=== PATIENT | female | born 1960 | race Asian ===

== ENCOUNTER 2023-02-02 16:17 | Inpatient (IN) | payer OTHER, SELFPAY ==
[2023-02-02] VITALS (7 sets, daily range): BP systolic 118–165; BP diastolic 57–113; PULSE 89–98; RESP 16–24; TEMP 36.7–37; O2SAT 89–98; BMI 25.7
--- NOTE | ~2023-02-02 | XR_ITS ---
EXAMINATION: XR CHEST CLINICAL INFORMATION: Shortness of breath COMPARISON: None available. TECHNIQUE: Frontal portable view of the chest was obtained. 4:44 PM FINDINGS: No significant abnormality is noted involving the heart, lungs, mediastinum, bony thorax or soft tissues. XR/XR chest 1V IMPRESSION: Unremarkable examination.
--- NOTE | 2023-02-02 16:28 | ED.SOB ---
HPI - SOB/Dyspnea General Chief Complaint: Asthma Stated Complaint: sob asthmatic, per ems Time Seen by Provider: 02/02/23 16:27 Source: patient Mode of arrival: EMS Limitations: no limitations History of Present Illness HPI Narrative: Patient with history of asthma usually stable use inhaler every day no recent admission to the hospital been having increased shortness of breath for last 5 hours patient been having his use of inhaler for last 5 days due to [place] smoke problem patient use at least 3 nebulizing treatment prior to arrival without much relief when EMS reached patient is saturating 89-91% at room air was given 125 mg Solu-Medrol and DuoNeb treatment on arrival patient for saturating 89% at room air patient feels chest tight no leg edema no palpitation no fever no chills Related Data Home Medications Medication Instructions Recorded Confirmed albuterol sulfate 2.5 mg/3 mL 2.5 mg inhalation Q4H PRN wheezing 02/02/23 02/02/23 (0.083 %) solution for nebulization albuterol sulfate 90 mcg/actuation 2 puff inhalation Q6H PRN wheezing 02/02/23 02/02/23 aerosol inhaler ascorbic acid (vitamin C) 500 mg 500 mg PO DAILY 02/02/23 02/02/23 tablet cholecalciferol (vitamin D3) 25 25 mcg PO DAILY 02/02/23 02/02/23 mcg (1,000 unit) tablet fluticasone 500 mcg-salmeterol 50 1 inh inhalation BID 02/02/23 02/02/23 mcg/dose blistr powdr for inhalation (Wixela Inhub) gabapentin 300 mg capsule 300 mg PO DAILY@1200 02/02/23 02/02/23 levothyroxine 50 mcg tablet 75 mcg PO DAILY@0600 02/02/23 02/02/23 (Synthroid) lisinopril 2.5 mg tablet 2.5 mg PO DAILY 02/02/23 02/02/23 meclizine 12.5 mg tablet 12.5 mg PO TID PRN Dizziness 02/02/23 02/02/23 montelukast 10 mg tablet 10 mg PO BEDTIME 02/02/23 02/02/23 sertraline 25 mg tablet 25 mg PO DAILY 02/02/23 02/02/23 Allergies Allergy/AdvReac Type Severity Reaction Status Date / Time No Known Allergies Allergy Verified 02/02/23 16:27 Review of Systems Review of Systems: Yes all other systems are reviewed and are negative [facility] Past Medical History Medical History Asthma Hypertension Hypothyroid Shoulder pain Social History Social History Household Members: Family Housing: House Do you presently have visiting nurse or 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 Oriented X3. Moderate respiratory distress Eyes: PERRLA, No Nystagmus ENT: Pharynx normal. Oral Mucosa moist Neck: Normal inspection. Neck supple. CVS: Normal heart rate and rhythm. Pulses normal. Respiratory: Moderate respiratory distress. Speaking short sentences Equal air entry bilateral, bilateral wheezing no rales Abdomen: Soft and nontender. Bowel sounds are present, no mass palpable, no CVA tenderness Skin: Skin warm and dry. Normal skin color. Normal skin turgor. Extremities: No lower extremity edema. No calf tenderness Neuro: Oriented X 3. No motor deficit. Medications Administered Generic Name Dose Route Start Last Admin Trade Name Freq PRN Reason Stop Dose Admin Methylprednisolone Sodium Succinate 40 mg 02/02/23 21:30 02/02/23 21:52 Methylprednisolone Sod Succ 40 Mg/Ml Vial IVPUSH 40 mg Q12H MAURI Administration Sodium Chloride 3 ml 02/03/23 00:00 02/02/23 23:29 0.9 % Sodium Chloride Flush 3 Ml Syringe IVFLUSH 3 ml QSHIFT MAURI Administration Discontinued Medications Generic Name Dose Route Start Last Admin Trade Name Freq PRN Reason Stop Dose Admin Albuterol Sulfate 10 mg 02/02/23 19:27 02/02/23 19:35 Albuterol Sulfate (0.083%) 2.5 Mg/3 Ml Vial.Neb INHALE 02/02/23 19:28 10 mg ONCE ONE Administration Albuterol Sulfate 5 mg/ 0 mg 02/02/23 16:37 02/02/23 17:06 Albuterol/Ipratropium 3 ml INHALE 02/02/23 16:38 2.5 each ONCE ONE Administration Sodium Chloride 1,000 mls @ 999 mls/hr 02/02/23 16:37 02/02/23 18:02 Ns IV 02/02/23 17:37 Infused .Q1H1M ONE Infusion Magnesium Sulfate 2 gm in 50 mls @ 100 mls/hr 02/02/23 16:37 02/02/23 17:32 Magnesium Sulfate/H2o IV 02/02/23 17:06 Infused ONCE ONE Infusion Medical Decision Making Medical Decision Making MDM Narrative: Patient with status asthmaticus received 2 hour long treatments in the ER still very tight saturating 95% at rest drops to 91% on ambulation. Will admit patient for supportive management Differential Diagnosis Status asthmaticus/pneumonia/bronchitis CHF Consult Healthcare Provider Management of the patient was discussed with: Hospitalist Lab Data MDM Lab Attestation statement: I reviewed the patient's lab results. 02/02/23 17:43 02/02/23 17:43 Labs: Lab Results 02/02/23 02/02/23 02/02/23 Range/Units 17:43 17:43 17:43 WBC 9.6 (4.8-10.8) X10*3/uL RBC 4.13 L (4.20-5.50) X10*6/uL Hgb 13.4 (12.0-16.0) g/dl Hct 39.5 (37.0-47.0) % MCV 95.6 (80.0-98.0) fL MCH 32.4 (27.0-33.0) pg MCHC 33.9 (31.0-35.0) g/dl RDW 13.4 (11.0-16.0) % Plt Count 218 (160-400) X10*3/uL MPV 10.4 (9.4-12.3) fL Immature Gran % (Auto) 0.3 (0.0-0.4) % Neut % (Auto) 83.8 H (45-73) % Lymph % (Auto) 12.7 L (20-40) % [place] % (Auto) 2.3 (2-11) % Eos % (Auto) 0.6 (0-4) % Baso % (Auto) 0.3 (0-2) % Lymph # (Auto) 1.2 (1.2-4.9) X10*3/uL [place] # (Auto) 0.2 (0.1-1.2) X10*3/uL Eos # (Auto) 0.1 (0.0-0.4) X10*3/uL Baso # (Auto) 0.0 (0.0-0.2) X10*3/uL Abs Immat Gran (auto) 0.03 (0.00-0.03) X10*3/uL Absolute Neuts (auto) 8.0 (2.0-8.3) x10*3/uL Absolute Nucleated RBC 0.000 (0.0-0.012) X10*3/uL Nucleated RBC % (auto) 0.0 (0.0-0.2) /100WBC Sodium 143 (135-145) mmol/L Potassium 4.1 (3.3-5.1) mmol/L Chloride 106 (96-108) mmol/L Carbon Dioxide 25 (22-29) mmol/L Anion Gap 16 (12-20) BUN 9 (9-16) mg/dL Creatinine 0.72 (0.5-1.4) mg/dL Estim Creat Clear Calc 74.8 Estimated GFR > 60 Random Glucose 132 H (60-115) mg/dL Calcium 9.0 (8.4-10.2) mg/dL Total Bilirubin 0.9 (0.0-1.0) mg/dL AST 17 (5-31) U/L ALT 14 (0-31) U/L Alkaline Phosphatase 58 (39-117) U/L Total Protein 7.2 (6.5-8.0) g/dL Albumin 3.9 (3.5-5.0) g/dL COVID-19 (JOELLE) Negative (Negative) COVID-19 Clin Com See Note Critical Care Time Critical Care Time Critical Care Time: Yes Total Critical Care Time: 95 Attestation: The patient was critically ill with a high probability of imminent or life threatening deterioration. I spent greater [id number] minutes of discontinuous time evaluating the patient,delivering critical care at the bedside, discussing and evaluating pertinent data with consultants. Critical care time does not include time spent performing separately billable procedures or teaching. Total time spent performing critical care was 95 minutes. Discharge Plan Discharge Clinical Impression: Asthma with status asthmaticus Patient Disposition: Admitted As Inpatient Interventions: Admission Worksheet (ED) Last Done: 02/02/23 22:55 Discharge Date/Time: 02/02/23 23:05
--- NOTE | 2023-02-02 17:12 | PC.NURSE ---
pt alert and orientedx3, nsr on the traffic monitor specialist, elevated bp and tachypneic - otherwise vss, respiratory therapist bedside providing pt with ordered treatment, IVF and magnesium hung per provider order, inspiratory and expiratory wheezing noted upon auscultation prior to magnesium treatment, pt states 0/10 pain but feels like she has a sore throat d/t nagging cough, call astorga placed withihn reach, will continue to monitor.
--- NOTE | 2023-02-02 18:00 | PC.NURSE ---
magnesium infused and discontinued per provider order, pt demonstrating clear lungs bilaterally with a decrease in wheezing post respiratory treatment and magnesium administration, pt verbalizes decrease in chest tightness during inspiration and expiration, pt resting comfortably watching television sitting upright showing no manifestations of an increased WOB, call astorga placed within reach.
--- NOTE | 2023-02-02 19:56 | PC.NURSE ---
Pt aox4 receiving neb treatment at the bedside. Reports no pain at this time. NSR on monitor with hr 92. O2 sat 95% on 3L NC. RR 14. VSS No apparent distress noted. Will continue to monitor.
--- NOTE | 2023-02-02 21:38 | P.HPHOSP_ITS ---
History of Present Illness Date of Service: 02/02/23 Attending physician on admission: Farhan Bajwa Chief Complaint: Wheezing, SOB Pt is a 62-year-old female with a PMH significant for?hypothyroidism, HTN, moderate persistent asthma, and mood disorder who presents to the ED with?increased wheezing and shortness of breath since this morning. Patient states that at 03:00 she woke having difficulty breathing. Patient used her inhalers went back to sleep, but when she awoke this morning she continued to have severe wheezing and shortness of breath which worsened by 10:00 despite rep eated use of her inhalers. Patient called EMS and arrived at the hospital tachypneic and satting at 89% on RA. Patient is not on supplemental home O2, and she reports her last admission to a hospital for an asthma exacerbation was around 15 years ago. Patient denies chest pain/pressure, palpitations. No fever, chills, nausea, vomiting, abdominal pain. In the ED patient was hypoxic at 89% O2 on RA, tachypneic up to 24, and hypertensive up to 165/66. Labs were grossly unremarkable. CXR showed no acute cardiopulmonary process. Pt was treated with IVF, DuoNebs, Mag sulfate, yet despite treatment patient continued to have shortness of breath and wheezing. She will be admitted to the hospital under observation for treatment and further evaluation of acute hypoxic respiratory failure in the setting of asthma exacerbation. Review of Systems Review of Systems: Shortness of breath, dyspnea Wheezing Denies chest pain/pressure, palpitations Nausea, vomiting, fever, chills Denies abdominal pain Yes all other systems are reviewed and are negative [facility] Medical History Asthma Hypertension Hypothyroid Shoulder pain Social History Alcohol intake: never Patient Tobacco Use Status: Never used Tobacco Meds Allergies Allergy/AdvReac Type Severity Reaction Status Date / Time No Known Allergies Allergy Verified 02/02/23 16:27 Active Medications: Current Medications Albuterol/Ipratropium (Albuterol/Iprat 2.5/0.5mg 3 Ml Ampul.Neb) 3 ml INHALE RQ4H WHILE AWAKE MAURI Albuterol/Ipratropium (Albuterol/Iprat 2.5/0.5mg 3 Ml Ampul.Neb) 3 ml INHALE Q4H PRN PRN Reason: Wheezing Methylprednisolone Sodium Succinate (Methylprednisolone Sod Succ 40 Mg/Ml Vial) 40 mg IVPUSH Q12H [facility] Pharmacy Consult (Consult Rx Perform Med Rec) 1 each MISCELLANE ONCE PRN PRN Reason: Consult order Home Medications Medication Instructions Recorded Confirmed Last Taken Type albuterol sulfate 2.5 mg/3 mL 2.5 mg inhalation Q4H PRN wheezing 02/02/23 02/02/23 02/01/23 History (0.083 %) solution for nebulization albuterol sulfate 90 mcg/actuation 2 puff inhalation Q6H PRN wheezing 02/02/23 02/02/23 02/01/23 History aerosol inhaler ascorbic acid (vitamin C) 500 mg 500 mg PO DAILY 02/02/23 02/02/23 02/01/23 History tablet cholecalciferol (vitamin D3) 25 25 mcg PO DAILY 02/02/23 02/02/23 02/01/23 History mcg (1,000 unit) tablet fluticasone 500 mcg-salmeterol 50 1 inh inhalation BID 02/02/23 02/02/23 02/01/23 History mcg/dose blistr powdr for inhalation (Wixela Inhub) gabapentin 300 mg capsule 300 mg PO DAILY@1200 02/02/23 02/02/23 02/01/23 History levothyroxine 50 mcg tablet 75 mcg PO DAILY@0600 02/02/23 02/02/23 02/01/23 History (Synthroid) lisinopril 2.5 mg tablet 2.5 mg PO DAILY 02/02/23 02/02/23 02/01/23 History meclizine 12.5 mg tablet 12.5 mg PO TID PRN Dizziness 02/02/23 02/02/23 02/01/23 History montelukast 10 mg tablet 10 mg PO BEDTIME 02/02/23 02/02/23 02/01/23 History sertraline 25 mg tablet 25 mg PO DAILY 02/02/23 02/02/23 02/01/23 History Physical Exam Vital Signs and Narrative: Vital Signs: Last Vital Signs Temp 98.6 F 02/02/23 16:27 Pulse 95 02/02/23 19:54 Resp 16 02/02/23 19:54 BP 125/69 02/02/23 19:54 Pulse Ox 93 02/02/23 19:54 O2 Del Method Nasal Cannula 02/02/23 19:54 O2 Flow Rate 3 02/02/23 19:54 BMI result Body Mass Index 25.7 Constitutional: Alert, in no acute distress. Mental Status: Oriented to person, place and time. Eyes: Pupils are equal, round, and reactive to light. Ear, Nose, and Throat: Oropharynx clear, mucous membranes moist. Ears and nose without deformities. Trachea midline. Respiratory: Diffuse expiratory wheezing bilaterally. Cardiovascular: S1, S2 regular. No murmurs, rubs, or gallops. Gastrointestinal: Abdomen soft, non-tender, non-distended. Normal bowel sounds. Neurologic: Cranial nerves II-XII are grossly intact bilaterally. No focal neurological deficits. Moves all extremities spontaneously. Skin: No rashes or lesions noted. Musculoskeletal: No cyanosis or clubbing. Extremities: No edema. Psychiatric: Normal mood and affect. Results Labs 02/02/23 17:43 02/02/23 17:43 Labs: Laboratory Results - last 24 hr 02/02/23 02/02/23 02/02/23 17:43 17:43 17:43 MCV 95.6 MCH 32.4 MCHC 33.9 RDW 13.4 Plt Count 218 MPV 10.4 Immature Gran % (Auto) 0.3 Neut % (Auto) 83.8 H Lymph % (Auto) 12.7 L [place] % (Auto) 2.3 Eos % (Auto) 0.6 Baso % (Auto) 0.3 Lymph # (Auto) 1.2 [place] # (Auto) 0.2 Eos # (Auto) 0.1 Baso # (Auto) 0.0 Abs Immat Gran (auto) 0.03 Absolute Neuts (auto) 8.0 Absolute Nucleated RBC 0.000 Nucleated RBC % (auto) 0.0 Anion Gap 16 Estim Creat Clear Calc 74.8 Estimated GFR > 60 Random Glucose 132 H Calcium 9.0 Total Bilirubin 0.9 AST 17 ALT 14 Alkaline Phosphatase 58 Total Protein 7.2 Albumin 3.9 COVID-19 (JOELLE) Negative COVID-19 Clin Com See Note Imaging Radiologist's Impressions: Impressions Chest X-Ray 02/02/23 16:53 IMPRESSION: Unremarkable examination. Assessment and Plan (1) Asthma exacerbation: Status: Acute Plan Pt is a 62-year-old female with a PMH significant for?hypothyroidism, HTN, moderate persistent asthma, and mood disorder who presents to the ED with?increased wheezing and shortness of breath since this morning. Patient states that at 03:00 she woke having difficulty breathing. Patient used her inhalers went back to sleep, but when she awoke this morning she continued to have severe wheezing and shortness of breath which worsened by 10:00 despite repeated use of her inhalers. Patient be admitted to the hospital under observation for treatment further evaluation of acute asthma exacerbation. Acute hypoxic respiratory failure in the setting of asthma exacerbation Patient with moderate persistent asthma, arrived to ED satting at 89% on RA Currently satting at 93% on 3L NC, not on home O2, diffuse wheezing on auscultation despite treatment in the ED Treat with DuoNebs, Solu-Medrol Titrate supplemental O2>92%, weakness tolerated Monitor respiratory status HTN Continue home meds Hypothyroidism Continue home meds Mood disorder Continue sertraline Full Code Attending:?Dr. Bajwa DVT Prophylaxis: Patient ambulatory Patient will be admitted to hospital under observation for treatment and further evaluation acute hypoxic respiratory failure in the setting of asthma exacerbation. Time Spent With Patient Time: Total time managing care of this patient today ____ minutes. Quality Stroke Does the patient have a stroke diagnosis?: No VTE Prior VTE?: No VTE Risk Level:: Medical - moderate - high VTE Device Contraindication: Treatment Not Indicated VTE Drug Contraindication: Treatment Not Indicated
--- NOTE | 2023-02-02 21:47 | PHA.MEDREC ---
Pharmacy Consult ? Medication Reconciliation Pharmacy has completed the medication reconciliation. Pt able to name most medications. Says she was unable to keep anything down today but she did take most meds yesterday
[2023-02-02] MEDS: methylPREDNISolone Sod Succ 40 MG/ML VIAL IVPUSH (21:52)
--- NOTE | 2023-02-02 22:54 | PC.NURSE ---
Nursing report provided to nurse Christine. Pt being transferred to room 486 and aware of plan of care.
[2023-02-03] VITALS (9 sets, daily range): BP systolic 109–137; BP diastolic 54–64; PULSE 73–101; RESP 14–18; TEMP 36.2–37.1; O2SAT 92–97
[2023-02-03 07:10] LABS: Anion Gap 16 (12-20); Blood Urea Nitrogen 13 mg/dL (9-16); Calcium 9.3 mg/dL (8.4-10.2); Carbon Dioxide 23 mmol/L (22-29); Chloride 107 mmol/L (96-108); Creatinine Clr Calc Pharmacy 74.8; Estimated Glomerular Filt Rate > 60; Glucose Random 164 mg/dL (60-115); Potassium 4.5 mmol/L (3.3-5.1); Sodium 141 mmol/L (135-145)
[2023-02-03] MEDS: Albuterol/Iprat 2.5/0.5MG 3 ML AMPUL.NEB INHALE ×4 (07:30→18:59)
[2023-02-03] MEDS: methylPREDNISolone Sod Succ 40 MG/ML VIAL IVPUSH ×2 (08:31→20:02)
--- NOTE | 2023-02-03 10:00 | P.PNIM_ITS ---
Subjective Subjective Date of Service: 02/03/23 Interval History: breathing improved still wheezing + a little dyspneic Review of Systems Review of Systems: Yes all other systems are reviewed and are negative Physical Exam Vital Signs: Vital Signs: Last Vital Signs Temp 97.2 F 02/03/23 08:00 Pulse 96 02/03/23 08:00 Resp 18 02/03/23 08:00 BP 115/56 L 02/03/23 08:00 Pulse Ox 92 02/03/23 08:00 O2 Del Method Room Air 02/03/23 08:00 O2 Flow Rate 2 02/03/23 03:48 BMI result Body Mass Index 25.7 Gen: in no acute distress HEENT: sclera anicteric, moist mucus membranes Neck: supple Lungs: extensive exp wheeezing on R Heart: regular rate and rhythm, no murmurs Abd: soft, non-tender, non-distended Ext: no edema Skin: warm/well-perfused Neuro: alert and oriented x3, no focal findings Psych: appropriate affect Objective Data Active Medications Acetaminophen (Acetaminophen 325 Mg Tablet) 650 mg PO Q6H PRN PRN Reason: Pain, Mild (Pain Scale 1-3) Albuterol Sulfate (Albuterol Sulfate (0.083%) 2.5 Mg/3 Ml Vial.Neb) 2.5 mg INHALE Q4H PRN PRN Reason: wheezing Albuterol Sulfate (Albuterol Sulfate 90 Mcg 8 Gm Inhaler) 2 puff INHALE Q6H PRN PRN Reason: wheezing Albuterol/Ipratropium (Albuterol/Iprat 2.5/0.5mg 3 Ml Ampul.Neb) 3 ml INHALE RQ4H WHILE AWAKE [facility] Last Admin: 02/03/23 07:30 Dose: 3 ml Documented By: ARCELIA Albuterol/Ipratropium (Albuterol/Iprat 2.5/0.5mg 3 Ml Ampul.Neb) 3 ml INHALE Q4H PRN PRN Reason: Wheezing Ascorbic Acid (Ascorbic Acid 500 Mg Tablet) 500 mg PO DAILY [facility] Last Admin: 02/03/23 08:31 Dose: 500 mg Documented By: SHAHIDA Fluticasone/Vilanterol (Fluticasone/Vilanterol 200/25 Blst.W.Dev) 1 puff INHALE RDAILY [facility] Last Admin: 02/03/23 07:46 Dose: 1 puff Documented By: ARCELIA Gabapentin (Gabapentin 300 Mg Capsule) 300 mg PO DAILY@1200 [facility] Levothyroxine Sodium (Levothyroxine Sodium 75 Mcg Tablet) 75 mcg PO DAILY@0600 [facility] Last Admin: 02/03/23 05:05 Dose: 75 mcg Documented By: VALENTIN Lisinopril (Lisinopril 2.5 Mg Tablet) 2.5 mg PO DAILY [facility]; Protocol Last Admin: 02/03/23 08:31 Dose: 2.5 mg Documented By: SHAHIDA Meclizine HCl (Meclizine Hcl 12.5 Mg Tablet) 12.5 mg PO TID PRN PRN Reason: Dizziness Melatonin (Melatonin 3 Mg Tablet) 6 mg PO BEDTIME PRN PRN Reason: Insomnia Methylprednisolone Sodium Succinate (Methylprednisolone Sod Succ 40 Mg/Ml Vial) 40 mg IVPUSH Q12H [facility] Last Admin: 02/03/23 08:31 Dose: 40 mg Documented By: SHAHIDA Montelukast Sodium (Montelukast Sodium 10 Mg Tablet) 10 mg PO BEDTIME [facility] Ondansetron HCl (Ondansetron Hcl 4 Mg/2 Ml Vial) 4 mg IVPUSH Q8H PRN PRN Reason: Nausea and Vomiting Pharmacy Consult (Consult Rx Perform Med Rec) 1 each MISCELLANE ONCE PRN PRN Reason: Consult order Sertraline HCl (Sertraline Hcl 25 Mg Tablet) 25 mg PO DAILY [facility] Last Admin: 02/03/23 08:31 Dose: 25 mg Documented By: SHAHIDA Sodium Chloride (0.9 % Sodium Chloride Flush 3 Ml Syringe) 3 ml IVFLUSH QSHIFT [facility] Last Admin: 02/03/23 08:31 Dose: 3 ml Documented By: SHAHIDA Vitamin D (Cholecalciferol (Vitamin D3) 25 Mcg Tablet) 25 mcg PO DAILY [facility] Last Admin: 02/03/23 08:31 Dose: 25 mcg Documented By: SHAHIDA Labs 02/03/23 06:00 02/03/23 06:00 Labs: Laboratory Results - last 24 hr 02/02/23 02/02/23 02/02/23 17:43 17:43 17:43 MCV 95.6 MCH 32.4 MCHC 33.9 RDW 13.4 Plt Count 218 MPV 10.4 Immature Gran % (Auto) 0.3 Neut % (Auto) 83.8 H Lymph % (Auto) 12.7 L [place] % (Auto) 2.3 Eos % (Auto) 0.6 Baso % (Auto) 0.3 Lymph # (Auto) 1.2 [place] # (Auto) 0.2 Eos # (Auto) 0.1 Baso # (Auto) 0.0 Abs Immat Gran (auto) 0.03 Absolute Neuts (auto) 8.0 Absolute Nucleated RBC 0.000 Nucleated RBC % (auto) 0.0 Smear Tech's Comments Anion Gap 16 Estim Creat Clear Calc 74.8 Estimated GFR > 60 Random Glucose 132 H Calcium 9.0 Total Bilirubin 0.9 AST 17 ALT 14 Alkaline Phosphatase 58 Total Protein 7.2 Albumin 3.9 COVID-19 (JOELLE) Negative COVID-19 Clin Com See Note 02/03/23 02/03/23 06:00 06:00 MCV 95.7 MCH 31.9 MCHC 33.3 RDW 13.6 Plt Count 221 MPV 10.8 Immature Gran % (Auto) 0.6 H Neut % (Auto) 91.6 H Lymph % (Auto) 6.6 L [place] % (Auto) 1.1 L Eos % (Auto) 0.0 Baso % (Auto) 0.1 Lymph # (Auto) 0.7 L [place] # (Auto) 0.1 Eos # (Auto) 0.0 Baso # (Auto) 0.0 Abs Immat Gran (auto) 0.06 H Absolute Neuts (auto) 9.2 H Absolute Nucleated RBC 0.000 Nucleated RBC % (auto) 0.0 Smear Tech's Comments VERIFIED Anion Gap 16 Estim Creat Clear Calc 74.8 Estimated GFR > 60 Random Glucose 164 H Calcium 9.3 Total Bilirubin AST ALT Alkaline Phosphatase Total Protein Albumin COVID-19 (JOELLE) COVID-19 Clin Com Assessment and Plan (1) Asthma with status asthmaticus: Status: Acute Plan d#2 62yo F with mod per asthma, hypothyroid, HTN, mood disorder admitted for hypoxia due to asthma exac # acute hypoxic resp failure due to exac of mod per asthma - steroids, nebs - continue ICS/LABA, montelukast - wean O2 as liliam # HTN - lisinopril # hypothyroid - LT4 # mood disorder - sertraline # VTE ppx; LMWH # dispo: home poss tomorrow In my clinical judgment, the patient requires continued inpatient hospitalization for the following reasons: resp distress Time Spent With Patient Time: Total time managing care of this patient today 35____ minutes. Quality Stroke Does the patient have a stroke diagnosis?: No VTE Prior VTE?: No VTE Risk Level:: Medical - moderate - high VTE Device Contraindication: Treatment Not Indicated VTE Drug Contraindication: Treatment Not Indicated
--- NOTE | 2023-02-03 10:55 | MHC.CM.PN ---
CM MET WITH PT AND HER [id number]/HOTEL SERVICE SUPERVISOR, AT BEDSIDE PT LIVES WITH HER SON AND HAS DAILY HOTEL SERVICE SUPERVISOR SERVICES PT USES A CANE TO AMBULATE SHE DECLINES TO COMPLETE A HCP TODAY, INFORMATION AND DOCUMENT PROVIDED SHE SAYS SHE WILL DISCUSS THIS WITH FAMILY PCP: KOLBY JEAN IMM DELIVERED DCP: HOME, RESUME HOTEL SERVICE SUPERVISOR FAMILY TO TRANSPORT
[2023-02-04] VITALS (10 sets, daily range): BP systolic 104–134; BP diastolic 54–66; PULSE 66–79; RESP 14–20; TEMP 36.2–36.8; O2SAT 93–98
--- NOTE | 2023-02-04 06:59 | PC.NURSE ---
IV infiltrated while administering IV SoluMedrol at 1999. Placement of new IV attempted by multiple nurses overnight. Unable to obtain access.
[2023-02-04] MEDS: Albuterol/Iprat 2.5/0.5MG 3 ML AMPUL.NEB INHALE ×3 (07:32→15:06)
--- NOTE | 2023-02-04 08:11 | P.PNIM_ITS ---
Subjective Subjective Date of Service: 02/04/23 Interval History: still with sob, especially overnight Physical Exam Vital Signs: Vital Signs: Last Vital Signs Temp 97.2 F 02/04/23 07:04 Pulse 67 02/04/23 07:34 Resp 18 02/04/23 07:34 BP 117/56 L 02/04/23 07:04 Pulse Ox 97 02/04/23 07:04 O2 Del Method Room Air 02/04/23 07:04 O2 Flow Rate 2 02/03/23 03:48 BMI result Body Mass Index 25.7 no acute distress, no accessory muscles, does have bilateral exp wheezes Objective Data Active Medications Acetaminophen (Acetaminophen 325 Mg Tablet) 650 mg PO Q6H PRN PRN Reason: Pain, Mild (Pain Scale 1-3) Albuterol Sulfate (Albuterol Sulfate (0.083%) 2.5 Mg/3 Ml Vial.Neb) 2.5 mg INHALE Q4H PRN PRN Reason: wheezing Albuterol Sulfate (Albuterol Sulfate 90 Mcg 8 Gm Inhaler) 2 puff INHALE Q6H PRN PRN Reason: wheezing Albuterol/Ipratropium (Albuterol/Iprat 2.5/0.5mg 3 Ml Ampul.Neb) 3 ml INHALE RQ4H WHILE AWAKE ON LICENSE OF [facility] Last Admin: 02/04/23 07:32 Dose: 3 ml Documented By: ARCELIA Albuterol/Ipratropium (Albuterol/Iprat 2.5/0.5mg 3 Ml Ampul.Neb) 3 ml INHALE Q4H PRN PRN Reason: Wheezing Ascorbic Acid (Ascorbic Acid 500 Mg Tablet) 500 mg PO DAILY ON LICENSE OF [facility] Last Admin: 02/04/23 07:25 Dose: 500 mg Documented By: SHAHIDA Fluticasone/Vilanterol (Fluticasone/Vilanterol 200/25 Blst.W.Dev) 1 puff INHALE RDAILY ON LICENSE OF [facility] Last Admin: 02/04/23 07:32 Dose: 1 puff Documented By: ARCELIA Gabapentin (Gabapentin 300 Mg Capsule) 300 mg PO DAILY@1200 ON LICENSE OF [facility] Last Admin: 02/03/23 13:24 Dose: 300 mg Documented By: SHAHIDA Guaifenesin/Codeine Phosphate (Guaifen/Codeine Sf 200/20/10ml 10 Ml Liquid) 5 ml PO Q6H PRN PRN Reason: cough Last Admin: 02/04/23 07:32 Dose: 5 ml Documented By: SHAHIDA Levothyroxine Sodium (Levothyroxine Sodium 75 Mcg Tablet) 75 mcg PO DAILY@0600 ON LICENSE OF [facility] Last Admin: 02/04/23 06:31 Dose: 75 mcg Documented By: GABRIELLA Lisinopril (Lisinopril 2.5 Mg Tablet) 2.5 mg PO DAILY ON LICENSE OF [facility]; Protocol Last Admin: 02/04/23 07:25 Dose: 2.5 mg Documented By: SHAHIDA Meclizine HCl (Meclizine Hcl 12.5 Mg Tablet) 12.5 mg PO TID PRN PRN Reason: Dizziness Melatonin (Melatonin 3 Mg Tablet) 6 mg PO BEDTIME PRN PRN Reason: Insomnia Montelukast Sodium (Montelukast Sodium 10 Mg Tablet) 10 mg PO BEDTIME ON LICENSE OF [facility] Last Admin: 02/03/23 20:02 Dose: 10 mg Documented By: GABRIELLA Ondansetron HCl (Ondansetron Hcl 4 Mg/2 Ml Vial) 4 mg IVPUSH Q8H PRN PRN Reason: Nausea and Vomiting Pharmacy Consult (Consult Rx Perform Med Rec) 1 each MISCELLANE ONCE PRN PRN Reason: Consult order Prednisone (Prednisone 20 Mg Tablet) 40 mg PO DAILY ON LICENSE OF [facility] Sertraline HCl (Sertraline Hcl 25 Mg Tablet) 25 mg PO DAILY ON LICENSE OF [facility] Last Admin: 02/04/23 07:25 Dose: 25 mg Documented By: SHAHIDA Sodium Chloride (0.9 % Sodium Chloride Flush 3 Ml Syringe) 3 ml IVFLUSH QSHIFT ON LICENSE OF [facility] Last Admin: 02/04/23 07:33 Dose: Not Given Documented By: SHAHIDA Non-Admin Reason: No Access Vitamin D (Cholecalciferol (Vitamin D3) 25 Mcg Tablet) 25 mcg PO DAILY ON LICENSE OF [facility] Last Admin: 02/04/23 07:25 Dose: 25 mcg Documented By: SHAHIDA Labs 02/03/23 06:00 02/03/23 06:00 Assessment and Plan (1) Asthma with status asthmaticus: Status: Acute Plan 62F PMH moderate persistent asthma, hypothyroid, HTN, mood disorder presented with sob acute hypoxic resp failure due to exacerbation of moderate persistent asthma improving but still sob change to po prednisone, continue bronchodilators, singulair, inhaled steroids HTN lisinopril hypothyroid LT4 mood disorder sertraline VTE ppx; LMWH reason for continued hospitalization:ongoing sob Time Spent With Patient Time: Total time managing care of this patient today ____ minutes. Quality Stroke Does the patient have a stroke diagnosis?: No VTE Prior VTE?: No VTE Risk Level:: Medical - moderate - high VTE Device Contraindication: Treatment Not Indicated VTE Drug Contraindication: Treatment Not Indicated
[2023-02-05 04:00] VITALS: BP 127/58; PULSE 57; RESP 16; TEMP 36.2; O2SAT 93
[2023-02-05 07:28] VITALS: BP 126/61; PULSE 54; RESP 16; TEMP 36.1; O2SAT 94
[2023-02-05] MEDS: Albuterol/Iprat 2.5/0.5MG 3 ML AMPUL.NEB INHALE ×2 (08:29→11:10)
[2023-02-05 08:31] VITALS: PULSE 54; RESP 16; O2SAT 98
--- NOTE | 2023-02-05 10:16 | PM.DS ---
DS: Providers Provider Date of Service: 02/05/23 Date of admission: 02/02/23 21:38 Date of discharge: 02/05/23 Primary care physician: Unknown Physician DS: Diagnosis Discharge Diagnosis (1) Asthma with status asthmaticus: Status: Acute (2) Moderate persistent asthma with (acute) exacerbation: Status: Acute DS: Summary Hospital Course Hospital Course: from H+P by hospitalist Sobeida Gill, 02/02/23: Pt is a 62-year-old female with a PMH significant for?hypothyroidism, HTN, moderate persistent asthma, and mood disorder who presents to the ED with?increased wheezing and shortness of breath since this morning.? Patient states that at 03:00 she woke having difficulty breathing.? Patient used her inhalers went back to sleep, but when she awoke this morning she continued to have severe wheezing and shortness of breath which worsened by 10:00 despite repeated use of her inhalers.? Patient called EMS and arrived at the hospital tachypneic and satting at 89% on RA.? Patient is not on supplemental home O2, and she reports her last admission to a hospital for an asthma exacerbation was around 15 years ago.? Patient denies chest pain/pressure, palpitations.? No fever, chills, nausea, vomiting, abdominal pain. ? In the ED patient was hypoxic at 89% O2 on RA, tachypneic up to 24, and hypertensive up to 165/66. Labs were grossly unremarkable.? CXR showed no acute cardiopulmonary process. Pt was treated with IVF, DuoNebs, Mag sulfate, yet despite treatment patient continued to have shortness of breath and wheezing. She will be admitted to the hospital under observation for treatment and further evaluation of acute hypoxic respiratory failure in the setting of asthma exacerbation. 62yo F moderate persistent asthma, hypothyroid, HTN, and mood disorder who presented with dyspnea and was admitted for acute hypoxic resp failure due to exacerbation of her underlying asthma. She was treated with IV steroids and nebulized bronchodilators and weaned off of oxygen. She was discharged on a 3-day prednisone taper. Time Spent with Patient Time attestation: Total time managing care of this patient today __35__ minutes. Discharge coordination time: Greater than 30 minutes Quality: Safe Use of Opioids Does Pt have an Active Cancer Diagnosis on the Problem List?: No Quality: Stroke Does the patient have a stroke diagnosis?: No Physical Exam Vital Signs: Vital Signs: Last Vital Signs Temp 97 F 02/05/23 07:28 Pulse 54 02/05/23 08:31 Resp 16 02/05/23 08:31 BP 126/61 02/05/23 07:28 Pulse Ox 94 02/05/23 07:28 O2 Del Method Room Air 02/05/23 07:28 O2 Flow Rate 2 02/03/23 03:48 BMI result Body Mass Index 25.7 Gen: in no acute distress HEENT: sclera anicteric, moist mucus membranes Neck: supple Lungs: clear to auscultation bilaterally Heart: regular rate and rhythm, no murmurs Abd: soft, non-tender, non-distended Ext: no edema Skin: warm/well-perfused Neuro: alert and oriented x3, no focal findings Psych: appropriate affect DS: Data Data Completed and Pending Completed studies during hospitalization [Text1]: Laboratory Results WBC 10.1 X10*3/uL (4.8-10.8) 02/03/23 06:00 RBC 4.20 X10*6/uL (4.20-5.50) 02/03/23 06:00 Hgb 13.4 g/dl (12.0-16.0) 02/03/23 06:00 Hct 40.2 % (37.0-47.0) 02/03/23 06:00 MCV 95.7 fL (80.0-98.0) 02/03/23 06:00 MCH 31.9 pg (27.0-33.0) 02/03/23 06:00 MCHC 33.3 g/dl (31.0-35.0) 02/03/23 06:00 RDW 13.6 % (11.0-16.0) 02/03/23 06:00 Plt Count 221 X10*3/uL (160-400) 02/03/23 06:00 MPV 10.8 fL (9.4-12.3) 02/03/23 06:00 Immature Gran % (Auto) 0.6 % (0.0-0.4) H 02/03/23 06:00 Neut % (Auto) 91.6 % (45-73) H 02/03/23 06:00 Lymph % (Auto) 6.6 % (20-40) L 02/03/23 06:00 [place] % (Auto) 1.1 % (2-11) L 02/03/23 06:00 Eos % (Auto) 0.0 % (0-4) 02/03/23 06:00 Baso % (Auto) 0.1 % (0-2) 02/03/23 06:00 Lymph # (Auto) 0.7 X10*3/uL (1.2-4.9) L 02/03/23 06:00 [place] # (Auto) 0.1 X10*3/uL (0.1-1.2) 02/03/23 06:00 Eos # (Auto) 0.0 X10*3/uL (0.0-0.4) 02/03/23 06:00 Baso # (Auto) 0.0 X10*3/uL (0.0-0.2) 02/03/23 06:00 Abs Immat Gran (auto) 0.06 X10*3/uL (0.00-0.03) H 02/03/23 06:00 Absolute Neuts (auto) 9.2 x10*3/uL (2.0-8.3) H 02/03/23 06:00 Absolute Nucleated RBC 0.000 X10*3/uL (0.0-0.012) 02/03/23 06:00 Nucleated RBC % (auto) 0.0 /100WBC (0.0-0.2) 02/03/23 06:00 Smear Tech's Comments VERIFIED 02/03/23 06:00 Sodium 141 mmol/L (135-145) 02/03/23 06:00 Potassium 4.5 mmol/L (3.3-5.1) 02/03/23 06:00 Chloride 107 mmol/L (96-108) 02/03/23 06:00 Carbon Dioxide 23 mmol/L (22-29) 02/03/23 06:00 Anion Gap 16 (12-20) 02/03/23 06:00 BUN 13 mg/dL (9-16) 02/03/23 06:00 Creatinine 0.72 mg/dL (0.5-1.4) 02/03/23 06:00 Estim Creat Clear Calc 74.8 02/03/23 06:00 Estimated GFR > 60 02/03/23 06:00 Random Glucose 164 mg/dL (60-115) H 02/03/23 06:00 Calcium 9.3 mg/dL (8.4-10.2) 02/03/23 06:00 Total Bilirubin 0.9 mg/dL (0.0-1.0) 02/02/23 17:43 AST 17 U/L (5-31) 02/02/23 17:43 ALT 14 U/L (0-31) 02/02/23 17:43 Alkaline Phosphatase 58 U/L (39-117) 02/02/23 17:43 Total Protein 7.2 g/dL (6.5-8.0) 02/02/23 17:43 Albumin 3.9 g/dL (3.5-5.0) 02/02/23 17:43 COVID-19 (JOELLE) Negative (Negative) 02/02/23 17:43 COVID-19 Clin Com See Note 02/02/23 17:43 Impressions Chest X-Ray 02/02/23 16:53 IMPRESSION: Unremarkable examination. Discharge Plan Discharge Anticipated Discharge Date/Time: 02/05/23 10:10 Patient Disposition: Home, Self-Care Discharge Diagnosis: asthma exacerbation Referrals: Meet Kim III, MD [Physician] - 1 Week Physician,Wendy Rhodes [Primary Care Provider] - 1 Week Discharge Medications: New prednisone 20 mg Tablet 40 mg PO DAILY Qty: 6 0RF Continued meclizine 12.5 mg tablet 12.5 mg PO TID PRN (Reason: Dizziness) ascorbic acid (vitamin C) 500 mg Tablet 500 mg PO DAILY levothyroxine [Synthroid] 50 mcg tablet 75 mcg PO DAILY@0600 fluticasone propion-salmeterol [Wixela Inhub] 500-50 mcg/dose blister with device 1 inh inhalation BID gabapentin 300 mg capsule 300 mg PO DAILY@1200 sertraline 25 mg tablet 25 mg PO DAILY montelukast 10 mg tablet 10 mg PO BEDTIME lisinopril 2.5 mg tablet 2.5 mg PO DAILY cholecalciferol (vitamin D3) 25 mcg (1,000 unit) Tablet 25 mcg PO DAILY albuterol sulfate 2.5 mg /3 mL (0.083 %) solution for nebulization 2.5 mg inhalation Q4H PRN (Reason: wheezing) Qty: 30 0RF albuterol sulfate 90 mcg/actuation HFA aerosol inhaler 2 puff inhalation Q6H PRN (Reason: wheezing) Qty: 1 0RF Discharge Orders: Discharge Order (Routine); Ordered 02/05/23 Ordered By: Darnell Rodrigues Diet: Low salt diet Activity on Discharge: As tolerated Stand Alone Forms: Patient Portal Discharge page Care Plan Goals: lung health Health Concerns: See Discharge Summary. Plan of Treatment: prednisone 40 mg/d for 3 days albuterol neb or inhaler as needed for rescue continue controller inhalers and montelukast Please follow up with your primary care doctor within 1 week. Return to the hospital if you experience recurrent or worsening symptoms. Assessment: See Discharge Summary.
[2023-02-05 11:10] VITALS: PULSE 54; RESP 16; O2SAT 98
[2023-02-05 11:38] VITALS: BP 129/59; PULSE 70; RESP 16; TEMP 36; O2SAT 96
--- NOTE | 2023-02-05 13:03 | MHC.CM.PN ---
IMM 02/03/23 Patient is discharged to home today, self care. Patients family will provide transport home.
== END 2023-02-05 13:37 | disposition home or self-care (01) | DRG 202 ==
LOC: HO.ED 21:29 → HO.EDOVER 21:49 → HO.IMC 22:25 → HO.S3 02-04 19:15
PROVIDERS: Admitting Provider Student in an Organized Health Care Education/Training Program; Emergency Provider Internal Medicine; PCP Internal Medicine; Visit Provider Family Medicine
DX: J45.42 Moderate persistent asthma with status asthmaticus (principal); J96.01 Acute respiratory failure with hypoxia; I10 Essential (primary) hypertension; F39 Unspecified mood [affective] disorder; E03.9 Hypothyroidism, unspecified; Z20.822 Contact with and (suspected) exposure to COVID-19; Z79.51 Long term (current) use of inhaled steroids; Z79.890 Hormone replacement therapy; Z79.899 Other long term (current) drug therapy
CPT/HCPCS: 36415; 71045; 80048; 80053; 85025; 87635; 94640; 99285; J2920; J3475

== ENCOUNTER → 2023-02-02 21:38 | Outpatient (BNV) | payer OTHER, SELFPAY | PROVIDERS: Admitting Provider Student in an Organized Health Care Education/Training Program; Emergency Provider Internal Medicine; Visit Provider Student in an Organized Health Care Education/Training Program | DX: J45.902 Unspecified asthma with status asthmaticus (principal); J45.41 Moderate persistent asthma with (acute) exacerbation | CPT/HCPCS: 99222; 99232; 99239 ==

== ENCOUNTER 2023-05-24 14:23 | Outpatient (REF) | payer OTHER, SELFPAY ==
[2023-05-24 15:10] LABS: MANUAL DIFF FLAG NO
[2023-05-24 15:29] LABS: Basophils Absolute Auto 0.1 X10*3/uL (0.0-0.2); Basophils Percent Auto 0.8 % (0-2); Eosinophils Absolute Auto 0.3 X10*3/uL (0.0-0.4); Eosinophils Percent Auto 4.1 % (0-4); Hematocrit 40.1 % (37.0-47.0); Hemoglobin 13.9 g/dl (12.0-16.0); Imm Gran Abs Auto 0.01 X10*3/uL (0.00-0.03); Imm Gran Pct Auto 0.1 % (0.0-0.4); Lymphocytes Absolute Auto 3.5 X10*3/uL (1.2-4.9); Lymphocytes Percent Auto 41.3 % (20-40); Mean Corpuscular HGB Conc 34.7 g/dl (31.0-35.0); Mean Corpuscular Hemoglobin 31.7 pg (27.0-33.0); Mean Corpuscular Volume 91.3 fL (80.0-98.0); Monocytes Absolute Auto 0.6 X10*3/uL (0.1-1.2); Monocytes Percent Auto 6.8 % (2-11); Neutrophils Absolute Auto 3.9 x10*3/uL (2.0-8.3); Neutrophils Percent Auto 46.9 % (45-73); Platelet Count 244 X10*3/uL (160-400); Red Blood Count 4.39 X10*6/uL (4.20-5.50); Red Cell Distribution Width 14.9 % (11.0-16.0); White Blood Count 8.4 X10*3/uL (4.8-10.8)
== END 2023-05-24 14:24 | disposition home or self-care (01) ==
LOC: HO.LAB 14:23
PROVIDERS: PCP Internal Medicine; Referring Provider Internal Medicine; Visit Provider Internal Medicine Pulmonary Disease
DX: J45.41 Moderate persistent asthma with (acute) exacerbation (principal); Z91.09 Other allergy status, other than to drugs and biological substances
CPT/HCPCS: 36415; 82785; 85025; 86003

== ENCOUNTER 2023-05-24 14:23 | Outpatient (AMB) | payer OTHER, SELFPAY ==
[2023-05-24 14:34] VITALS: BP 138/77; PULSE 67; O2SAT 95; BMI 27.6
--- NOTE | 2023-05-24 14:34 | MHC.OFFVIS ---
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 Patient requires to use albuterol 3 to 4 times a day. Though, she denies an acute exacerbation. Patient denies having pets. She does complain of environmental allergies. Patient does have a history of COPD in her father. 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) Alcohol intake: never Patient Tobacco Use Status: Never used Tobacco service: No Review of Systems Const Denies daytime sleepiness, Denies excessive sweating, Denies fatigue, Denies fever(s), Denies lethargy, Denies malaise, Denies night sweats, Denies snoring and Denies weight loss Eyes Denies blurry vision and Denies itchy eyes ENT Denies nasal congestion, Denies post nasal drip, Denies sinus pain, Denies sinus pressure and Denies other ( Thrush) Card Denies chest pain, Denies pedal edema, Denies dyspnea, Denies orthopnea and Denies paroxysmal nocturnal dyspnea Resp Denies cough, Denies hemoptysis, Denies excessive phlegm production, Denies dyspnea, Denies snoring and Denies wheezing GI Denies abdominal pain and Denies heartburn Musc Denies myalgias, Denies arthralgias and Denies joint swelling Skin/Breast Denies rash Neuro Denies memory loss and Denies seizure-like activity Psych Denies abnormal sleep pattern, Denies anxiety and Denies memory loss Endo Denies excessive sweating, Denies fatigue and Denies heat intolerance Terrell/Lymph Denies easy bruising Aller/Immun Denies itchy eyes, Denies seasonal rhinorrhea and Denies wheezing Physical Exam Vital Signs: Last Vital Signs Pulse 67 05/24/23 14:34 BP 138/77 05/24/23 14:34 Pulse Ox 95 05/24/23 14:34 Oxygen Delivery Method Room Air 05/24/23 14:34 BMI result Body Mass Index 27.6 Const General: no acute distress and alert Nutritional Appearance: not obese Orientation/consciousness: Other orientation findings ( oriented) HEENT Head: Yes atraumatic Eyes General: appearance normal, both eyes and all related structures Sclerae: sclerae normal EOM: EOMs intact bilaterally Neck Neck: Yes supple Lymphatic: no lymphadenopathy noted Resp Effort & Inspection: normal respiratory effort and no use of accessory muscles Auscultation: clear to auscultation bilaterally Cardio Rate: regular rate Rhythm: regular rhythm Heart sounds: no gallops, no murmurs and no rubs Skin General skin exam: other ( warm) Extrem General: No clubbing, No cyanosis and No edema Assessment & Plan Assessment & Plan (1) Environmental allergies: Code(s): Z91.09 - Other allergy status, other than to drugs and biological substances Plan: Will obtain IgE level, CBC with differential, and RAST panel for further evaluation. (2) Moderate persistent asthma with (acute) exacerbation: Code(s): J45.41 - Moderate persistent asthma with (acute) exacerbation Plan: Suboptimal control on high-dose Wixela, will switch to Trelegy and obtain full PFT. Orders: Orders Complete Blood Count Auto Diff Today J45.41 - Moderate persistent asthma with (acute) exacerbation Rast Allergen Today J45.41 - Moderate persistent asthma with (acute) exacerbation PFT pulmonary function test Today J45.41 - Moderate persistent asthma with (acute) exacerbation Medications: New Trelegy Ellipta 200-62.5-25 mcg ([id number]) 1 inh inhalation DAILY 1 ea 6RF 30 days NS J45.41 - Moderate persistent asthma with (acute) exacerbation Coding Level of Care Code New Pt Level 4 (26331) Diagnoses Environmental allergies Z91.09 Moderate persistent asthma with (acute) exacerbation J45.41
== END 2023-05-24 14:57 | disposition home or self-care (01) ==
PROVIDERS: PCP Internal Medicine; Referring Provider Internal Medicine; Visit Provider Internal Medicine Pulmonary Disease
DX: Z91.09 Other allergy status, other than to drugs and biological substances (principal); J45.41 Moderate persistent asthma with (acute) exacerbation
CPT/HCPCS: 99204

== ENCOUNTER 2023-07-05 10:44 | Outpatient (REF) | payer OTHER, SELFPAY ==
--- NOTE | 2023-07-05 11:52 | PFT_ITS ---
Indication: Dyspnea Spirometry [FEV1 to FVC 64%; FEV1 1.31 L which is 129% predicted; FVC 2.04 L which is nodule in 27% predicted. There was a significant response to bronchodilators noted. Maximum voluntary ventilation 50% predicted Lung Volumes [Lung volumes total lung capacity 105% predicted; residual volume 129% predicted] Diffusion Capacity [DLCO 51%] Comparisons none Interpretation [There is an obstructive ventilatory defect consistent with COPD. The patient does have a significant response to bronchodilators noted. There is a moderate decrease in the maximum voluntary ventilation secondary to deconditioning. Lung volumes demonstrate significant air trapping due to the COPD. There is also a moderate diffusion impairment secondary to likely emphysematous changes in order parenchymal lung conditions should also be considered. Clinical correlation warranted] MTDD
== END 2023-07-05 10:45 | disposition home or self-care (01) ==
LOC: HO.RESP 10:44
PROVIDERS: PCP Internal Medicine; Visit Provider Internal Medicine Pulmonary Disease
DX: J45.41 Moderate persistent asthma with (acute) exacerbation (principal)
CPT/HCPCS: 94010; 94727; 94729

== ENCOUNTER 2023-08-21 10:41 | Outpatient (AMB) | payer OTHER, SELFPAY ==
[2023-08-21 10:46] VITALS: BP 118/77; PULSE 82; O2SAT 97; BMI 27.4
--- NOTE | 2023-08-21 10:46 | A.OFFVIS_ITS ---
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 Patient denies having pets. She does complain of environmental allergies. Patient does have a history of COPD in her father. After the last office visit patient was tried on trilogy, however she was not able to tolerated and she went back to using Wixela. She completed her pulmonary function tests that unfortunately showed poor techniques. Her immunologic workup is significant for elevated eosinophils, however negative RAST. Patient states that her symptoms are well controlled at this time and she denies any exacerbations. 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) Alcohol intake: never Patient Tobacco Use Status: Never used Tobacco service: No Review of Systems Const Denies daytime sleepiness, Denies excessive sweating, Denies fatigue, Denies fever(s), Denies lethargy, Denies malaise, Denies night sweats, Denies snoring and Denies weight loss Eyes Denies blurry vision and Denies itchy eyes ENT Denies nasal congestion, Denies post nasal drip, Denies sinus pain, Denies sinus pressure and Denies other ( Thrush) Card Denies chest pain, Denies pedal edema, Denies dyspnea, Denies orthopnea and Denies paroxysmal nocturnal dyspnea Resp Denies cough, Denies hemoptysis, Denies excessive phlegm production, Denies dyspnea, Denies snoring and Denies wheezing GI Denies abdominal pain and Denies heartburn Musc Denies myalgias, Denies arthralgias and Denies joint swelling Skin/Breast Denies rash Neuro Denies memory loss and Denies seizure-like activity Psych Denies abnormal sleep pattern, Denies anxiety and Denies memory loss Endo Denies excessive sweating, Denies fatigue and Denies heat intolerance Terrell/Lymph Denies easy bruising Aller/Immun Denies itchy eyes, Denies seasonal rhinorrhea and Denies wheezing Physical Exam Vital Signs: Last Vital Signs Pulse 82 08/21/23 10:46 BP 118/77 08/21/23 10:46 Pulse Ox 97 08/21/23 10:46 Oxygen Delivery Method Room Air 08/21/23 10:46 BMI result Body Mass Index 27.4 Const General: no acute distress and alert Nutritional Appearance: not obese Orientation/consciousness: Other orientation findings ( oriented) HEENT Head: Yes atraumatic Eyes General: appearance normal, both eyes and all related structures Sclerae: sclerae normal EOM: EOMs intact bilaterally Neck Neck: Yes supple Lymphatic: no lymphadenopathy noted Resp Effort & Inspection: normal respiratory effort and no use of accessory muscles Auscultation: clear to auscultation bilaterally Cardio Rate: regular rate Rhythm: regular rhythm Heart sounds: no gallops, no murmurs and no rubs Skin General skin exam: other ( warm) Extrem General: No clubbing, No cyanosis and No edema Assessment & Plan Assessment & Plan (1) Moderate persistent asthma with (acute) exacerbation: Code(s): J45.41 - Moderate persistent asthma with (acute) exacerbation Plan: Now well controlled on Wixela, albuterol MDI/nebs. Continue current regimen. (2) Environmental allergies: Code(s): Z91.09 - Other allergy status, other than to drugs and biological substances Plan: Results for immunologic testing reviewed. Negative RAST, but with eosinophilia. Symptoms are well controlled now on Singulair. If worsen, will consider immunologic therapy. Coding Level of Care Code Est Pt Level 4 (47563) Diagnoses Moderate persistent asthma with (acute) exacerbation J45.41 Environmental allergies Z91.09
== END 2023-08-21 11:04 | disposition home or self-care (01) ==
PROVIDERS: PCP Internal Medicine; Visit Provider Internal Medicine Pulmonary Disease
DX: J45.41 Moderate persistent asthma with (acute) exacerbation (principal); Z91.09 Other allergy status, other than to drugs and biological substances
CPT/HCPCS: 99214

== ENCOUNTER → 2023-08-21 10:41 | Outpatient (BNVA) | payer OTHER, SELFPAY | PROVIDERS: PCP Internal Medicine; Visit Provider Internal Medicine Pulmonary Disease | DX: J45.41 Moderate persistent asthma with (acute) exacerbation (principal); Z91.09 Other allergy status, other than to drugs and biological substances | CPT/HCPCS: 99212 ==

== ENCOUNTER 2024-03-25 11:25 | Outpatient (AMB) | payer OTHER, SELFPAY ==
--- NOTE | 2024-03-25 11:55 | MHC.OFFVIS ---
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 Patient denies having pets. She does complain of environmental allergies. Patient does have a history of COPD in her father. She completed her pulmonary function tests that unfortunately showed poor techniques. Her immunologic workup is significant for elevated eosinophils, however negative RAST. After the last office visit she was switched to Trelegy, however patient states that his symptoms worse controlled on Trelegy than they were on Wixela. Though she denies acute exacerbations. 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) Alcohol intake: never Patient Tobacco Use Status: Never used Tobacco service: No Review of Systems Const Denies daytime sleepiness, Denies excessive sweating, Denies fatigue, Denies fever(s), Denies lethargy, Denies malaise, Denies night sweats, Denies snoring and Denies weight loss Eyes Denies blurry vision and Denies itchy eyes ENT Denies nasal congestion, Denies post nasal drip, Denies sinus pain, Denies sinus pressure and Denies other ( Thrush) Card Denies chest pain, Denies pedal edema, Denies dyspnea, Denies orthopnea and Denies paroxysmal nocturnal dyspnea Resp Denies cough, Denies hemoptysis, Denies excessive phlegm production, Denies dyspnea, Denies snoring and Reports wheezing GI Denies abdominal pain and Denies heartburn Musc Denies myalgias, Denies arthralgias and Denies joint swelling Skin/Breast Denies rash Neuro Denies memory loss and Denies seizure-like activity Psych Denies abnormal sleep pattern, Denies anxiety and Denies memory loss Endo Denies excessive sweating, Denies fatigue and Denies heat intolerance Terrell/Lymph Denies easy bruising Aller/Immun Denies itchy eyes, Denies seasonal rhinorrhea and Reports wheezing Physical Exam Vital Signs: Last Vital Signs Pulse 64 03/25/24 11:56 BP 140/82 H 03/25/24 11:56 Pulse Ox 97 03/25/24 11:56 Oxygen Delivery Method Room Air 03/25/24 11:56 Const General: no acute distress and alert Nutritional Appearance: not obese Orientation/consciousness: Other orientation findings ( oriented) HEENT Head: Yes atraumatic Eyes General: appearance normal, both eyes and all related structures Sclerae: sclerae normal EOM: EOMs intact bilaterally Neck Neck: Yes supple Lymphatic: no lymphadenopathy noted Resp Effort & Inspection: normal respiratory effort and no use of accessory muscles Auscultation: clear to auscultation bilaterally Cardio Rate: regular rate Rhythm: regular rhythm Heart sounds: no gallops, no murmurs and no rubs Skin General skin exam: other ( warm) Extrem General: No clubbing, No cyanosis and No edema Assessment & Plan Assessment & Plan (1) Moderate persistent asthma with (acute) exacerbation: Code(s): J45.41 - Moderate persistent asthma with (acute) exacerbation Category: Medical Plan: Poor tolerance of Trelegy, switch back to Wixela. Continue albuterol MDI/nebs. Will request Fasenra approval. (2) Environmental allergies: Code(s): Z91.09 - Other allergy status, other than to drugs and biological substances Category: Medical Plan: Suboptimally controlled, expect to improve on Fasenra. Medications: New fluticasone propion-salmeterol 500-50 mcg/dose (Wixela Inhub) 1 inh inhalation BID 60 ea 6RF Discontinued Trelegy Ellipta 200-62.5-25 mcg (nuysetfneeq-[id number]-alusqjko) Discontinued Reason: Doctor's Order 1 inh inhalation DAILY 30 days 1 ea 6RF NS J45.41 - Moderate persistent asthma with (acute) exacerbation Coding Level of Care Code Est Pt Level 4 (34834) Diagnoses Moderate persistent asthma with (acute) exacerbation J45.41 Environmental allergies Z91.09
[2024-03-25 11:56] VITALS: BP 140/82; PULSE 64; O2SAT 97
== END 2024-03-25 12:07 | disposition home or self-care (01) ==
PROVIDERS: PCP Internal Medicine; Visit Provider Internal Medicine Pulmonary Disease
DX: J45.41 Moderate persistent asthma with (acute) exacerbation (principal); Z91.09 Other allergy status, other than to drugs and biological substances
CPT/HCPCS: 99214

== ENCOUNTER → 2024-03-25 11:25 | Outpatient (BNVA) | payer OTHER, SELFPAY | PROVIDERS: PCP Internal Medicine; Visit Provider Internal Medicine Pulmonary Disease | DX: J45.41 Moderate persistent asthma with (acute) exacerbation (principal); Z91.09 Other allergy status, other than to drugs and biological substances | CPT/HCPCS: 99212 ==

== ENCOUNTER 2024-06-23 11:04 | Outpatient (AMB) | payer OTHER, SELFPAY ==
[2024-06-23 11:09] VITALS: BP 132/82; PULSE 68; O2SAT 97; BMI 26.2
--- NOTE | 2024-06-23 11:09 | A.OFFVIS_ITS ---
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 After the last office visit patient was started on Fasenra with significantly improved symptom control. She denies recent exacerbations. She continues on Wixela and albuterol MDI/nebs. 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) Alcohol intake: never Patient Tobacco Use Status: Never used Tobacco service: No Review of Systems Const Denies daytime sleepiness, Denies excessive sweating, Denies fatigue, Denies fever(s), Denies lethargy, Denies malaise, Denies night sweats, Denies snoring and Denies weight loss Eyes Denies blurry vision and Denies itchy eyes ENT Denies nasal congestion, Denies post nasal drip, Denies sinus pain, Denies sinus pressure and Denies other ( Thrush) Card Denies chest pain, Denies pedal edema, Denies dyspnea, Denies orthopnea and Denies paroxysmal nocturnal dyspnea Resp Denies cough, Denies hemoptysis, Denies excessive phlegm production, Denies dysp yaima, Denies snoring and Denies wheezing GI Denies abdominal pain and Denies heartburn Musc Denies myalgias, Denies arthralgias and Denies joint swelling Skin/Breast Denies rash Neuro Denies memory loss and Denies seizure-like activity Psych Denies abnormal sleep pattern, Denies anxiety and Denies memory loss Endo Denies excessive sweating, Denies fatigue and Denies heat intolerance Terrell/Lymph Denies easy bruising Aller/Immun Denies itchy eyes, Denies seasonal rhinorrhea and Denies wheezing Physical Exam Vital Signs: Last Vital Signs Pulse 68 06/23/24 11:09 BP 132/82 06/23/24 11:09 Pulse Ox 97 06/23/24 11:09 Oxygen Delivery Method Room Air 06/23/24 11:09 BMI result Body Mass Index 26.2 Const General: no acute distress and alert Nutritional Appearance: not obese Orientation/consciousness: Other orientation findings ( oriented) HEENT Head: Yes atraumatic Eyes General: appearance normal, both eyes and all related structures Sclerae: sclerae normal EOM: EOMs intact bilaterally Neck Neck: Yes supple Lymphatic: no lymphadenopathy noted Resp Effort & Inspection: normal respiratory effort and no use of accessory muscles Auscultation: clear to auscultation bilaterally Cardio Rate: regular rate Rhythm: regular rhythm Heart sounds: no gallops, no murmurs and no rubs Skin General skin exam: other ( warm) Extrem General: No clubbing, No cyanosis and No edema Assessment & Plan Assessment & Plan (1) Moderate persistent asthma: Code(s): J45.40 - Moderate persistent asthma, uncomplicated Category: Medical Plan: Well controlled on Fasenra, Wixela, and albuterol MDI/nebs. Continue current regimen. (2) Environmental allergies: Code(s): Z91.09 - Other allergy status, other than to drugs and biological substances Category: Medical Plan: Well controlled on Fasenra. Continue current regimen. Medications: Refilled albuterol sulfate 90 mcg/actuation 2 puffs inhalation Q6H PRN 1 ea 6RF wheezing Coding Level of Care Code Est Pt Level 4 (73241) Diagnoses Moderate persistent asthma J45.40 Environmental allergies Z91.09
== END 2024-06-23 11:25 | disposition home or self-care (01) ==
PROVIDERS: PCP Internal Medicine; Visit Provider Internal Medicine Pulmonary Disease
DX: J45.40 Moderate persistent asthma, uncomplicated (principal); Z91.09 Other allergy status, other than to drugs and biological substances
CPT/HCPCS: 99214

== ENCOUNTER → 2024-06-23 11:04 | Outpatient (BNVA) | payer OTHER, SELFPAY | PROVIDERS: PCP Internal Medicine; Visit Provider Internal Medicine Pulmonary Disease | DX: J45.40 Moderate persistent asthma, uncomplicated (principal); R06.00 Dyspnea, unspecified; Z91.09 Other allergy status, other than to drugs and biological substances; Z57.2 Occupational exposure to dust | CPT/HCPCS: 99212 ==

== ENCOUNTER 2024-12-29 12:48 | Outpatient (AMB) | payer OTHER, SELFPAY ==
--- NOTE | 2024-12-29 13:45 | MHC.OFFVIS ---
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 She continues on Wixela, Fasenra, and albuterol MDI/nebs with excellent control of her symptoms. She denies recent exacerbations. 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 Patient Tobacco Use Status: Never used Tobacco service: No Review of Systems Const Denies daytime sleepiness, Denies excessive sweating, Denies fatigue, Denies fever(s), Denies lethargy, Denies malaise, Denies night sweats, Denies snoring and Denies weight loss Eyes Denies blurry vision and Denies itchy eyes ENT Denies nasal congestion, Denies post nasal drip, Denies sinus pain, Denies sinus pressure and Denies other ( Thrush) Card Denies chest pain, Denies pedal edema, Denies dyspnea, Denies orthopnea and Denies paroxysmal nocturnal dyspnea Resp Denies cough, Denies hemoptysis, Denies excessive phlegm production, Denies dyspnea, Denies snoring and Denies wheezing GI Denies abdominal pain and Denies heartburn Musc Denies myalgias, Denies arthralgias and Denies joint swelling Skin/Breast Denies rash Neuro Denies memory loss and Denies seizure-like activity Psych Denies abnormal sleep pattern, Denies anxiety and Denies memory loss Endo Denies excessive sweating, Denies fatigue and Denies heat intolerance Terrell/Lymph Denies easy bruising Aller/Immun Denies itchy eyes, Denies seasonal rhinorrhea and Denies wheezing Physical Exam Vital Signs: Last Vital Signs Pulse 63 12/29/24 13:48 BP 110/60 12/29/24 13:48 Pulse Ox 98 12/29/24 13:48 Oxygen Delivery Method Room Air 12/29/24 13:48 BMI result Body Mass Index 26.9 Const General: no acute distress and alert Nutritional Appearance: not obese Orientation/consciousness: Other orientation findings ( oriented) HEENT Head: Yes atraumatic Eyes General: appearance normal, both eyes and all related structures Sclerae: sclerae normal EOM: EOMs intact bilaterally Neck Neck: Yes supple Lymphatic: no lymphadenopathy noted Resp Effort & Inspection: normal respiratory effort and no use of accessory muscles Auscultation: clear to auscultation bilaterally Cardio Rate: regular rate Rhythm: regular rhythm Heart sounds: no gallops, no murmurs and no rubs Skin General skin exam: other ( warm) Extrem General: No clubbing, No cyanosis and No edema Assessment & Plan Assessment & Plan (1) Moderate persistent asthma: Code(s): J45.40 - Moderate persistent asthma, uncomplicated Category: Medical Plan: Well controlled on current regimen of Fasenra, Wixela, and albuterol MDI/nebs. Continue current regimen. (2) Environmental allergies: Code(s): Z91.09 - Other allergy status, other than to drugs and biological substances Category: Medical Plan: Well controlled on Fasenra and Singulair. Continue current regimen. Coding Level of Care Code Est Pt Level 4 (21184) Diagnoses Moderate persistent asthma J45.40 Environmental allergies Z91.09
[2024-12-29 13:48] VITALS: BP 110/60; PULSE 63; O2SAT 98; BMI 26.9
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
== END 2024-12-29 14:10 | disposition home or self-care (01) ==
LOC: HO.HPS 12:49
PROVIDERS: PCP Internal Medicine; Visit Provider Internal Medicine Pulmonary Disease
DX: J45.40 Moderate persistent asthma, uncomplicated (principal); Z91.09 Other allergy status, other than to drugs and biological substances
CPT/HCPCS: 99214

== ENCOUNTER → 2024-12-29 12:48 | Outpatient (BNVA) | payer OTHER, SELFPAY | PROVIDERS: PCP Internal Medicine; Visit Provider Internal Medicine Pulmonary Disease | DX: J45.40 Moderate persistent asthma, uncomplicated (principal); Z91.09 Other allergy status, other than to drugs and biological substances | CPT/HCPCS: 99212 ==

== ENCOUNTER 2025-07-15 09:57 | Outpatient (AMB) | payer OTHER, SELFPAY ==
[2025-07-15 10:19] VITALS: BP 132/72; PULSE 60; O2SAT 96; BMI 27.8
--- NOTE | 2025-07-15 10:19 | MHC.OFFVIS ---
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 She continues on Wixela, Fasenra, and albuterol MDI/nebs with excellent control of her symptoms. She denies recent exacerbations. 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 Patient Tobacco Use Status: Never used Tobacco service: No Review of Systems Const Denies daytime sleepiness, Denies excessive sweating, Denies fatigue, Denies fever(s), Denies lethargy, Denies malaise, Denies night sweats, Denies snoring and Denies weight loss Eyes Denies blurry vision and Denies itchy eyes ENT Denies nasal congestion, Denies post nasal drip, Denies sinus pain, Denies sinus pressure and Denies other ( Thrush) Card Denies chest pain, Denies pedal edema, Denies dyspnea, Denies orthopnea and Denies paroxysmal nocturnal dyspnea Resp Denies cough, Denies hemoptysis, Denies excessive phlegm production, Denies dyspnea, Denies snoring and Denies wheezing GI Denies abdominal pain and Denies heartburn Musc Denies myalgias, Denies arthralgias and Denies joint swelling Skin/Breast Denies rash Neuro Denies memory loss and Denies seizure-like activity Psych Denies abnormal sleep pattern, Denies anxiety and Denies memory loss Endo Denies excessive sweating, Denies fatigue and Denies heat intolerance Terrell/Lymph Denies easy bruising Aller/Immun Denies itchy eyes, Denies seasonal rhinorrhea and Denies wheezing Physical Exam Vital Signs: Last Vital Signs Pulse 60 07/15/25 10:19 BP 132/72 07/15/25 10:19 Pulse Ox 96 07/15/25 10:19 Oxygen Delivery Method Room Air 07/15/25 10:19 BMI result Body Mass Index 27.8 Const General: no acute distress and alert Nutritional Appearance: not obese Orientation/consciousness: Other orientation findings ( oriented) HEENT Head: Yes atraumatic Eyes General: appearance normal, both eyes and all related structures Sclerae: sclerae normal EOM: EOMs intact bilaterally Neck Neck: Yes supple Lymphatic: no lymphadenopathy noted Resp Effort & Inspection: normal respiratory effort and no use of accessory muscles Auscultation: clear to auscultation bilaterally Cardio Rate: regular rate Rhythm: regular rhythm Heart sounds: no gallops, no murmurs and no rubs Skin General skin exam: other ( warm) Extrem General: No clubbing, No cyanosis and No edema Assessment & Plan Assessment & Plan (1) Moderate persistent asthma: Code(s): J45.40 - Moderate persistent asthma, uncomplicated Category: Medical Plan: Well controlled on current regimen of Fasenra, Wixela, and albuterol MDI/nebs. Continue current regimen. (2) Environmental allergies: Code(s): Z91.09 - Other allergy status, other than to drugs and biological substances Category: Medical Plan: Well controlled on Fasenra and Singulair. Continue current regimen. Coding Level of Care Code Est Pt Level 4 (75664) Diagnoses Moderate persistent asthma J45.40 Environmental allergies Z91.09
--- OUTSIDE RECORDS SUMMARY | 2025-07-15 12:03 | XMS_ITS | Clinical Summary ---
Author Organization [facility] [address] [facility] Address [address] [place] [address] Phone Care Team Providers Care Bench Patternmaker Metal Name Role Phone Meet Kim MD Primary Care Provider [phone] Allergies Active Allergy Reactions Criticality Noted Date Comments Amlodipine Swelling 11/19/2017 Medications diclofenac (VOLTAREN) 1 % topical gel Apply 2 g topically 3 (three) times a day if needed. pain 02/22/20 24 Active incontinence pad, liner, disp (Bladder Control Pads) pad 4 each by Not Applicable route 1 (one) time each day. Regular 10/08/19 24 Active sertraline (ZOLOFT) 25 mg tablet Take 1 tablet (25 mg total) by mouth 1 (one) time each day. 90 tablet 2 10/14/19 25 Active montelukast (SINGULAIR) 10 mg tablet Take 1 tablet (10 mg total) by mouth at bedtime. 90 tablet 2 10/14/19 25 Active albuterol HFA (PROAIR HFA ; PROVENTIL HFA ; VENTOLIN HFA) 90 mcg/actuation inhaler Inhale 2 puffs by mouth every 6 (six) hours if needed for wheezing. COUGH 6.7 g 2 10/14/19 25 Active meclizine (ANTIVERT) 12.5 mg tablet TAKE ONE TABLET BY MOUTH THREE TIMES A DAY 270 tablet 1 02/25/20 25 Active albuterol 2.5 mg /3 mL (0.083 %) nebulizer solution USE 1 VIAL (3ML) VIA NEBULIZER EVERY 4 HOURS NEEDED FOR SHORTNESS OF BREATH,FOR COUGH OR WHEZING 375 mL 04/10/20 25 Active gabapentin (NEURONTIN) 300 mg capsule TAKE ONE CAPSULE BY MOUTH EVERY DAY 90 capsule 1 06/04/20 25 Active lisinopriL (PRINIVIL,ZEST RIL) 2.5 mg tablet TAKE ONE TABLET BY MOUTH EVERY DAY 90 tablet 1 07/07/20 25 Active Synthroid 75 mcg tablet TAKE ONE TABLET BY MOUTH EVERY DAY BEFORE BREAKFAST 90 tablet 1 07/07/20 25 Active lisinopriL (PRINIVIL,ZEST RIL) 2.5 mg tablet TAKE ONE TABLET BY MOUTH EVERY DAY 90 tablet 04/07/20 25 025 Discontinued Synthroid 75 mcg tablet TAKE ONE TABLET BY MOUTH EVERY DAY BEFORE BREAKFAST 90 tablet 04/07/20 25 025 Discontinued Active Problems Problem Noted Date Diagnosed Date Prediabetes 05/12/2025 Stress incontinence 03/12/2023 Depression 05/16/2018 Other chronic pain 05/16/2018 Essential hypertension 03/20/2017 Abnormal Pap smear of vagina 10/28/2015 Overview (07/07/2024): ASCUS 12/10 Cervical radiculopathy 02/24/2011 Overweight 02/24/2011 Hypothyroidism 04/15/2010 Overview (07/07/2024): S/p radioactive iodine therapy Asthma 08/22/2006 Encounters Date Type Department Care Team Description 05/11/2025 Results Follow-Up Adult Medicine [address] [phone] Lety Lugo PA 04/28/2025 Telephone Adult Medicine [address] [phone] Brooke De La Paz PA 04/15/2025 2:30 PM EDT Office Visit Adult Medicine [address] [phone] Brooke De La Paz PA Essential hypertension (Primary Dx); Hypothyroidism, unspecified type; Depression, unspecified depression type; Moderate persistent asthma without complication; Need for prophylactic vaccination and inoculation against influenza; Hypercholesterolemia; Screen for colon cancer; Elevated glucose from Last 3 Months Immunizations Immunization Administration Dates Next Due Influenza Quadravalent, MDCK , 0.5ml, preservative free (Flucelvax) 6mo and older 04/10/2024,04/05/2023,05/16/2018 Influenza trivalent, 0.5mL, preservative free (Fluarix; FluLaval; Fluzone) ages 6mo and older (Afluria) 3 years and older 05/02/2016,04/29/2014,04/09/2013,04/12,06/19/2011,06/22/2010 Influenza trivalent, MDCK, 0 .5mL, preservative free (Flucelvax) 6mo and older 04/15/2025 Influenza, Unspecified 04/13/2019,2016,03/31/2015,04/09 Pneumococcal polysaccharide 23 valent (Pneumovax 23) 2yo and older 10/15/2013 Td Tetanus diptheria (Tdvax) 7yo and older 12/27/2018 Tdap Tetanus diptheria acell ular pertussis (Boostrix; Adacel) 7yo and older 08/22/2006 Surgical History Surgery Date Site/Laterality Comments OTHER SURGICAL HISTORY 10/06 PROCEDURE: MAMMOGRAM HYSTERECTOMY 2003 PROCEDURE: HISTORICAL HYSTERECTOMY; COMMENT: cervical ca, ovaries left COLONOSCOPY 10/09/2013 PROCEDURE: SC COLONOSCOPY FLX DX W/COLLJ SPEC WHEN PFRMD; COMMENT: Normal screening examination. Medical History Medical History Date Comments Unspecified asthma(493.90) 08/22/2006 DX:Un specified asthma(493.90) Hyperthyroidism 11/01/2009 DX:Hyperthyroidi sm History of cervical cancer 11/01/2009 DX:Wv story of cervical cancer; COMMENT: Hysterectomy, ovaries left 2003 Cervical radiculopathy 02/24/2011 DX:Cervic al radiculopathy Hypothyroidism 04/15/2010 DX:Hypothyroidis m; COMMENT: S/p radioactive iodine therapy Abnormal Pap smear of vagina 10/28/2015 DX: Abnormal Pap smear of vagina; COMMENT: ASCUS 12/10 Family History Medical History Relation Name Comments Hyperthyroidism Daughter Asthma Father , COPD Diabetes Mother Breast cancer Neg Hx Relation Name Status Comments Daughter Father Mother Social History Tobacco Use Types Packs/Day Years Used Date Smoking Tobacco: Never Smokeless Tobacco: Never Tobacco Cessation:Counseling Given: Not Answered Alcohol Use Standard Drinks/Week Comments No 0 (1 standard drink = 0.6 oz pur e alcohol) Comments No Sex and Gender Information Value Date Recorded Sex Assigned at Female 07/18/2024 9:42 AM EST Legal Sex Female 2:54 AM EST Gender Identity Female 07/18/2024 9:42 AM EST Sexual Orientation Choose not to disclose 2023 9:42 AM EST Obstetrics History Para Term AB IAB SAB Ectopic Multiple Livin g Live Births 2 2 2 2 Date Outcome GA Total Labor Labor/2nd/3rd Weight Sex Type Anes PTL Gayla A1 A5 Name Clin Term Term Last Filed Vital Signs Vital Sign Reading Time Taken Comments Blood Pressure 120/62 04/15/2025 2:17 PM EDT Pulse 60 04/15/2025 2:17 PM EDT Temperature 36.9 C (98.4 F) 04/15/2025 2:17 PM EDT Respiratory Rate 19 10/13/2024 2:14 PM EDT Oxygen Saturation 97% 04/15/2025 2:17 PM EDT Inhaled Oxygen Concentration - - Weight 68.1 kg (150 lb 3.2 oz) 04/15/2025 2:17 P M EDT Height 157.5 cm (5' 2.01 ) 04/15/2025 2:17 PM ED T Body Mass Index 27.46 04/15/2025 2:17 PM EDT Plan of Treatment Upcoming Encounters Date Type Department Care Team (Late st Contact Info) Description 07/29/2025 11:00 AM EST Appointment Radiology Department - [address] [phone] 11/05/2025 11:30 AM EDT Office Visit Adult Medicine [address] [phone] Meet Kim MD [address] [place] [address] Health Maintenance Due Date Last Done Comments RSV Immunization Adult Patients (1 - Risk 50-74 years 1-dose series) 2011 Zoster Vaccines (1 of 2) 2011 Pneumococcal Vaccine: 50+ Years (2 of 2 - PCV) 10/15/2014 10/15/2013 Cervical Cancer Screening: Pap Smear 12/23/2016 12/23/2013 Medicare Annual Wellness Visit 07/08/2022 Social Influencers of Health Screening 07/08/2022 Depression Screening 07/30/2024 02/22/2024 COVID-19 Vaccine ( season) 2025 Hypertension/CHF/CAD Annual BMP Blood Test 04/22/2026 04/22/2025, 10/13/2024, 04/10/2024, Additional history exists Breast Cancer Screening 07/19/2026 07/19/20, 06/09/2023, 06/03/2022, Additional history exists Colorectal Cancer Screening: FIT-DNA (Cologuard) 04/25/2028 04/25/2025 DTaP,Tdap,and Td Vaccines (3 - Td or Tdap) 12/27/2028 12/27/2018, 08/22/2006 Cholesterol Screening (Lipid Panel) 04/22/2030 04/22/2025, 10/13/2024, 09/01/2022 Hepatitis C Screening Completed 02/11/2013 Influenza Vaccine Completed 04/15/2025, , 04/10/2024, Additional history exists HIB Vaccines Aged Out No longer eligi ble based on patient's age to complete this topic HIV Screening Discontinued HPV Vaccines Aged Out No longer eligi ble based on patient's age to complete this topic Hepatitis A Vaccines Aged Out No long er eligible based on patient's age to complete this topic Hepatitis B Vaccines Aged Out No long er eligible based on patient's age to complete this topic IPV Vaccines Aged Out No longer eligi ble based on patient's age to complete this topic MMR Vaccines Aged Out No longer eligi ble based on patient's age to complete this topic Meningococcal ACWY Vaccine Aged Out N o longer eligible based on patient's age to complete this topic Meningococcal B Vaccine Aged Out No l onger eligible based on patient's age to complete this topic RSV Immunization Patients Under 20 months Aged Out No longer eligible based on patient's age to complete this topic Varicella Vaccines Aged Out No longer eligible based on patient's age to complete this topic Procedures Procedure Name Priority Date/Time Associated Diagnosis Comments LAB COLOGUARD COLON CANCER SCREEN Routine 04/25/2025 4:00 PM EDT Screen for colon cancer BASIC METABOLIC PANEL Routine 04/22/2025 11:48 AM EDT Essential hypertension LIPID PANEL WITH REFLEX TO DIRECT LDL Routine 04/22/2025 11:48 AM EDT Hypercholesterolemia THYROID STIMULATING HORMONE WITH REFLEX TO FREE T4 AND FREE T3 Routine 04/22/2025 11:48 AM EDT Hypothyroidism, unspecified type HEMOGLOBIN A1C Routine 04/22/2025 11:48 AM EDT Elevated glucose MG MAMMO DIGITAL SCREENING W TOMI BILAT Routine 07/19/2024 9:01 AM EST Encounter for screening mammogram for breast cancer DEPRESSION SCREENING Routine 02/22/2024 PAP SMEAR Routine 12/23/2013 HEPATITIS C SCREENING Routine 02/11/2013 from Last 3 Months or Most Recently Relevant to Health Maintenance Results * Cologuard?? colon cancer screening (04/25/2025 4:00 PM EDT) COLOGUARD Negative Negative [facility] Comment: The Cologuard (TM) test was performed on this specimen. NEGATIVE TEST RESULT. A negative Cologuard result indicates a low likelihood that a colorectal cancer (CRC) or advanced adenoma (adenomatous polyps with more advanced pre-malignant features) is present. The chance that a person with a negative Cologuard test has a colorectal cancer is less than 1 in 1500 (negative predictive value >99.9%) or has an advanced adenoma is less than 5.3% (negative predictive value 94.7%). These data are based on a prospective cross-sectional study of 10,000 individuals at average risk for colorectal cancer who were screened with both Cologuard and colonoscopy. (Vira Clifton, N Engl J Med 2014;370(14):1286- 1297) The normal value (reference range) for this assay is negative. COLOGUARD RE-SCREENING RECOMMENDATION: Periodic colorectal cancer screening is an important part of preventive healthcare for asymptomatic individuals at average risk for colorectal cancer. Following a negative Cologuard result, the [place] [employer] Society and U.S. Multi-Society Task Force screening guidelines recommend a Cologuard re-screening interval of 3 years. References: [employer] [employer] Guideline for Colorectal Cancer Screening: https://www.cancer.org/cancer/cepwh-cofxak-xsorxd/xshudeldj-zlpjpoyjx-anhxftd/ac s-rec ommendations.html.; Kodak DK, Mara DEGROOT, Rufus RhodesK, Colorectal Cancer Screening: Recommendations for Physicians and Patients from the U.S. Multi-Society Task Force on Colorectal Cancer Screening , Am J Gastroenterology 2017; 112:9465-0909. TEST DESCRIPTION: Composite algorithmic analysis of stool DNA-biomarkers with hemoglobin immunoassay. Quantitative values of individual biomarkers are not reportable and are not associated with individual biomarker result reference ranges. Cologuard is intended for colorectal cancer screening of adults of either sex, 45 years or older, who are at average-risk for colorectal cancer (CRC). Cologuard has been approved for use by the U.S. FDA. The performance of Cologuard was established in a cross sectional study of average-risk adults aged 50-84. Cologuard performance in patients ages 45 to 49 years was estimated by sub-group analysis of near-age groups. Colonoscopies performed for a positive result may find as the most clinically significant lesion: colorectal cancer [4.0%], advanced adenoma (including sessile serrated polyps greater than or equal to 1cm diameter) [20%] or non- advanced adenoma [31%]; or no colorectal neoplasia [45%]. These estimates are derived from a prospective cross-sectional screening study of 10,000 individuals at average risk for colorectal cancer who were screened with both Cologuard and colonoscopy. (Vira Clifton, N Engl J Med 2014;370(14):0921-7756.) Cologuard may produce a false negative or false positive result (no colorectal cancer or precancerous polyp present at colonoscopy follow up). A negative Cologuard test result does not guarantee the absence of CRC or advanced adenoma (pre-cancer). The current Cologuard screening interval is every 3 years. ([employer] [employer] Society and U.S. Multi-Society Task Force). Cologuard performance data in a 10,000 patient pivotal study using colonoscopy as the reference method can be accessed at the following location: www.[employer]oma.[employer]/results. Additional description of the Cologuard test process, warnings and precautions can be found at www.[employer]-Dimension SolutionsogStudySouprd.com. Stool 04/25/2025 4:00 PM EDT 04/28/2025 10:41 AM EDT Brooke RUIZ LAB MOLECULAR DIAGNOSTI CS ORDERABLES Final Result Performing Organization Address [facility] de Phone Number [employer] [address] [place] [address] [facility] [address] [place] [address] * Thyroid stimulating hormone with reflex to free t4 and free t3 (04/22/2025 11:48 AM EDT) TSH 0.88 0.40 - 4.00 mcIU/mL LAB CHEMISTRY METHOD 04/22/2025 5:01 PM EDT [facility] Blood Venous blood specimen / Unknown Venipuncture / Unknown 04/22/2025 11:48 AM EDT 04/22/2025 11:48 AM EDT [facility] BLOOD ORDERABLES Fi nal Result Performing Organization Address [facility]/ZIP Co de Phone Number [facility] [address] [place] [address], [place] [phone] * (ABNORMAL) Lipid panel with reflex to direct LDL (04/22/2025 11:48 AM EDT) Cholesterol 222(H) 0 - 200 mg/dL LAB CHEMISTRY METHOD 04/22/2025 4:35 PM EDT [facility] Triglycerides 85 0 - 150 mg/dL LAB CHEMISTRY METHOD 04/22/2025 4:35 PM EDT [facility] HDL 73 >=40 mg/dL LAB CHEMISTRY METHOD 04/22/2025 4:35 PM EDT [facility] LDL Calculated 132(H) 0 - 100 mg/dL LAB CHEMISTRY METHOD 04/22/2025 4:35 PM EDT [facility] Comment:Estimated LDL Calcul ated using equation: Total cholesterol - HDL cholesterol - (Triglycerides/5) VLDL Cholesterol Gary 17 mg/dL LAB CHEMISTRY METHOD 04/22/2025 4:35 PM EDT [facility] Non HDL Chol. (LDL+VLDL) 149(H) <145 mg/dL LAB CHEMISTRY METHOD 04/22/2025 4:35 PM EDT [facility] Chol/HDL Ratio 3.0 0.0 - 4.4 LAB CHEMISTRY METHOD 04/22/2025 4:35 PM EDT [facility] Blood Venous blood specimen / Unknown Venipuncture / Unknown 04/22/2025 11:48 AM EDT 04/22/2025 11:48 AM EDT Brooke RUIZ LAB BLOOD ORDERABLES Fi nal Result [facility] [address] [place] [address], * Hemoglobin A1c (04/22/2025 11:48 AM EDT) Hemoglobin A1C 6.1 <6.5 % LAB CHEMISTRY METHOD 04/22/2025 2:29 PM EDT [facility] Mean Bld Glu Estim. 128 mg/dL LAB CHEMISTRY METHOD 04/22/2025 2:29 PM EDT [facility] Blood Venous blood specimen / Unknown Venipuncture / Unknown 04/22/2025 11:48 AM EDT 04/22/2025 11:48 AM EDT Brooke RUIZ LAB BLOOD ORDERABLES Fi nal Result [facility] [address] [place] [address], [place] [phone] * Basic metabolic panel (04/22/2025 11:48 AM EDT) Sodium 142 133 - 145 mmol/L LAB CHEMISTRY METHOD [facility] Potassium 4.2 3.5 - 5.5 mmol/L LAB CHEMISTRY METHOD 04/22/2025 4:34 PM [facility] Chloride 105 96 - 110 mmol/L LAB CHEMISTRY METHOD 04/22/2025 4:34 PM [facility] CO2 32 21 - 32 mmol/L LAB CHEMISTRY METHOD 04/22/2025 4:34 PM [facility] Anion Gap 5 3 - 11 LAB CHEMISTRY METHOD 04/22/2025 4:34 PM [facility] Glucose 91 70 - 100 mg/dL LAB CHEMISTRY METHOD 04/22/2025 4:34 PM [facility] BUN 9 5 - 25 mg/dL LAB CHEMISTRY METHOD 04/22/2025 4:34 PM [facility] Creatinine 0.70 0.50 - 1.10 mg/dL LAB CHEMISTRY METHOD 04/22/2025 4:34 PM [facility] eGFR 97 >=60 mL/min/1. 73m2 LAB CHEMISTRY METHOD 04/22/2025 4:34 PM [facility] Comment:Calculation based on the Chronic Kidney Disease Epidemiology Collaboration (CKD-EPI) equation refit without adjustment for race. BUN/Creatinine Ratio 12.9 LAB CHEMISTRY METHOD 04/22/2025 4:34 PM [facility] Calcium 9.0 8.5 - 10.5 mg/dL LAB CHEMISTRY METHOD 04/22/2025 4:34 PM EDT [facility] Blood Venous blood specimen / Unknown Venipuncture / Unknown 04/22/2025 11:48 AM EDT 04/22/2025 11:48 AM EDT us Brooke RUIZ LAB BLOOD ORDERABLES Fi nal Result [facility] [address] [place] [address], [place] [phone] * MG Mammo Digital Screening w Tomi bilat (07/19/2024 9:01 AM EST) Anatomical Region Laterality Modality Breast Bilateral Mammography 07/21/2024 4:49 PM EST Impressions 07/21/2024 4:54 PM EST 1. No mammographic evidence of malignancy 2. Scattered fibroglandular tissue BI-RADS CATEGORY: 2 - BENIGN RECOMMENDATION: Screening bilateral mammogram is recommended in 1 year. Mammo Location: [facility], [address] [place] [address], [id number], . -------- FINAL REPORT -------- Dictated By: Hansel Gallo Dictated Date: 07/21/2024 16:49 ET Assigned Physician: Hansel Gallo Reviewed and Electronically Signed By: Hansel Gallo Signed Date: 07/21/2024 16:54 ET Workstation ID: [id number] Transcribed By: Self Edit Transcribed Date: 07/21/2024 16:49 ET Narrative 07/21/2024 4:54 PM EST A BILATERAL DIGITAL 3D SCREENING MAMMOGRAPHY HISTORY: Routine screening. No family history of breast cancer. COMPARISON: Multiple priors dating back to 05/10/2020 Technique: Bilateral full field digital mammography (3D) was performed using standard CC and MLO projections CAD was used to evaluate this mammogram. FINDINGS: Right: No suspicious masses, groups of microcalcification or areas of architectural distortion identified. Stable typically benign parenchymal asymmetries. Left: No suspicious masses, groups of microcalcification or areas of architectural distortion identified. Stable typically benign parenchymal asymmetries. BREAST DENSITY: B - There are scattered areas of fibroglandular density. Procedure Note Hansel Gallo MD - 07/21/2024 A BILATERAL DIGITAL 3D SCREENING MAMMOGRAPHY HISTORY: Routine screening. No family history of breast cancer. COMPARISON: Multiple priors dating back to 05/10/2020 Technique: Bilateral full field digital mammography (3D) was performedusing standard CC and MLO projections CAD was used to evaluate this mammogram. FINDINGS: Right: No suspicious masses, groups of microcalcification or areas ofarchitectural distortion identified. Stable typically benign parenchymalasymmetries. Left: No suspicious masses, groups of microcalcification or areas ofarchitectural distortion identified. Stable typically benign parenchymalasymmetries. BREAST DENSITY: B - There are scattered areas of fibroglandular density. IMPRESSION: 1. No mammographic evidence of malignancy 2. Scattered fibroglandular tissue BI-RADS CATEGORY: 2 - BENIGN RECOMMENDATION: Screening bilateral mammogram is recommended in 1 year. Mammo Location: [facility], [address] [place] [address], [id number], . -------- FINAL REPORT -------- Dictated By: Hansel Gallo Dictated Date: 07/21/2024 16:49 ET Assigned Physician: Hansel Gallo Reviewed and Electronically Signed By: Hansel Gallo Signed Date: 07/21/2024 16:54 ET Workstation ID: [id number] Transcribed By: Self Edit Transcribed Date: 07/21/2024 16:49 ET Meet Kim MD IMG BI PROCEDURES Final Result * Depression Screening (02/22/2024) Depression Screening abstracted Historical Provider HEALTH MAINTENANCE Final Result * Pap Smear (12/23/2013) Pap smear no interpretation , abstracted Historical Provider HEALTH MAINTENANCE Final Result * Hepatitis C Screening (02/11/2013) Pathologist [facility] Hepatitis C Screening abstracted us Historical Provider HEALTH MAINTENANCE Final Result from Last 3 Months or Most Recently Relevant to Health Maintenance Insurance [employer] MED[employer]ARE Member Subscriber Plan / Payer (Ef fective 2018-Present) Name:ZACHERY WALTERS Relation to Subscriber:Self Name:Zachery Walters Payer ID:[id number] Group ID:[id number] Type:Not on file Address: [place] [address] [place] [id number] Care Teams Bench Patternmaker Metal Relationship Specialty Start Date End Date Meet Kim MD [address] [place] [address] [place] [phone] PCP - General Internal Medicine 02/02/20
--- OUTSIDE RECORDS SUMMARY | 2025-07-15 12:03 | XMS_ITS | Patient Health Record ---
Author Organization [facility] Address [address], [place] [id number] Support Name Relationship Address Phone Zachery Connell Guarantor Unknown [phone] Reason For Referral No Information Plan Of Treatment No Information
== END 2025-07-15 10:32 | disposition home or self-care (01) ==
LOC: HO.HPS 09:58
PROVIDERS: PCP Internal Medicine; Visit Provider Internal Medicine Pulmonary Disease
DX: J45.40 Moderate persistent asthma, uncomplicated (principal); Z91.09 Other allergy status, other than to drugs and biological substances
CPT/HCPCS: 99214

== ENCOUNTER → 2025-07-15 09:57 | Outpatient (BNVA) | payer OTHER, SELFPAY | PROVIDERS: PCP Internal Medicine; Visit Provider Internal Medicine Pulmonary Disease | DX: J45.40 Moderate persistent asthma, uncomplicated (principal); Z91.09 Other allergy status, other than to drugs and biological substances; Z79.899 Other long term (current) drug therapy | CPT/HCPCS: 99212 ==